=== PATIENT | male | born 1990 | race Caucasian/White ===

== ENCOUNTER 2020-07-22 17:32 | Emergency (ER) | payer BC ==
[2020-07-22] MEDS ORDERED: Famotidine 20 MG/2 ML SDV IVPUSH ONE (17:38)
[2020-07-22] MEDS ORDERED: Dexamethasone 10 MG/ML SDV IVPUSH ONE (17:38)
[2020-07-22] MEDS ORDERED: Sodium Chloride 0.9% 2.5 ML Syringe FLUSH PRN (17:38)
[2020-07-22] MEDS ORDERED: Sodium Chloride 0.9% 10 ML Syringe FLUSH PRN (17:38)
[2020-07-22] MEDS ORDERED: Sodium Chloride 0.9% 1,000 ML IV ONE (17:38)
[2020-07-22] MEDS ORDERED: diphenhydrAMINE 50 MG/ML SDV IVPUSH ONE (17:38)
[2020-07-22] MEDS ORDERED: Albuterol/Ipratropium 3.0-0.5 MG/3 ML Neb Soln NEB ONE (17:39)
--- NOTE | 2020-07-22 17:44 | EDM.PDOC ---
<Baljit Sheldon - Last Filed: 07/22/20 18:16> ED HPI GENERAL MEDICAL PROBLEM - General Chief Complaint: Allergic Reaction Stated Complaint: ALLERGIC REACTION Time Seen by Provider: 07/22/20 17:34 Source of Information: Reports: Patient History Limitations: Reports: No Limitations - History of Present Illness INITIAL COMMENTS - FREE TEXT/NARRATIVE: 30-year-old male no past medical history presents for apparent allergic reaction. 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 He was eating a "Pateros treat" and did not know the ingredients. This occurred around 4 PM. Shortly after eating he noted a scratchy throat and felt as if he was getting an allergic reaction. He noted facial flushing, nausea, mild shortness of breath. He tried to vomit but was unable to. He did not have an EpiPen so did not administer any medications prior to arrival. He denies difficulty swallowing, and can tolerate his secretions. Generalized Pain Score (Numeric/FACES): 3 - Related Data Allergies Allergy/AdvReac Type Severity Reaction Status Date / Time No Known Allergies Allergy Verified 07/22/20 17:40 Home Meds: Home Meds EPINEPHrine [Epipen 2-Delvis] 0.3 mg IJ ONETIME PRN #1 auto.injct 07/22/20 [Rx] predniSONE [Prednisone] 50 mg PO DAILY #3 tablet 07/22/20 [Rx] ED ROS ALLERGIC REACTION - Review of Systems Review Of Systems: Comprehensive ROS is negative, except as noted in HPI. ED EXAM GENERAL NO PERIP PULSE - Physical Exam Exam: See Below Exam Limited By: No Limitations General Appearance: Alert, WD/WN, No Apparent Distress Ears: Normal External Exam Nose: Normal Inspection Throat/Mouth: Normal Inspection, Normal Lips, Normal Oropharynx, Normal Voice, No Airway Compromise Head: Atraumatic, Normocephalic Neck: Normal Inspection, Other (+stridor on neck auscultation) Respiratory/Chest: No Respiratory Distress, No Accessory Muscle Use, Wheezing Cardiovascular: Normal Peripheral Pulses, Regular Rate, Rhythm Extremities: Normal Inspection Neurological: Alert Psychiatric: Normal Affect, Normal Mood Skin Exam: Warm, Dry, Other (facial flushing) Course - Re-Assessments/Exams Free Text/Narrative Re-Assessment/Exam: 07/22/20 17:48 Patient's history and physical is consistent with anaphylactic allergic reaction. Will give IM epinephrine, IV fluid bolus, Benadryl, Pepcid, Decadron. 07/22/20 18:13 Patient is feeling much better; facial flushing is improving, his SOB has resolved. Will continue observation. Will sign out to night team physician to follow-up reassessment after 4-hrs observation period. Epi-pen sent to patient's pharmacy. Departure - Departure Disposition: Home, Self-Care 01 Clinical Impression: Allergic reaction - Discharge Information Prescriptions: EPINEPHrine [Epipen 2-Delvis] 0.3 mg IJ ONETIME PRN #1 auto.injct PRN Reason: Other predniSONE [Prednisone] 50 mg PO DAILY #3 tablet Instructions: How to Use an Auto-Injector Pen, Anaphylactic Reaction, Adult, Allergies, Adult, [id number] Referrals: PCP,None [Primary Care Provider] - Forms: ED Department Discharge Additional Instructions: The need for follow-up, as well as the timing and circumstances, are variable depending upon the specifics of your emergency department visit. If you don't have a primary care physician on staff, we will provide you with a referral. We always advise you to contact your personal physician following an emergency department visit to inform them of the circumstance of the visit and for follow-up with them and/or the need for any referrals to a consulting specialist. The emergency department will also refer you to a specialist when appropriate. This referral assures that you have the opportunity for follow-up care with a specialist. All of these measure are taken in an effort to provide you with optimal care, which includes your follow-up. Under all circumstances we always encourage you to contact your private physician who remains a resource for coordinating your care. When calling for follow-up care, please make the office aware that this follow-up is from your recent emergency room visit. If for any reason you are refused follow-up, please contact the [facility] Emergency Department at and asked to speak to the emergency department charge nurse. If you do not have a primary care doctor, please follow up with the clinics below within 3-5 days. [facility] - Primary [facility] [address] [place] [id number] [facility] [address] [place] [id number] Sepsis Event Note (ED) - Evaluation Sepsis Screening Result: No Definite Risk <Billy Delvalle - Last Filed: 07/22/20 20:09> Course - Vital Signs Last Recorded V/S: Last Vital Signs Temp 98.6 F 07/22/20 18:58 Pulse 62 07/22/20 18:58 Resp 16 07/22/20 18:58 BP 121/75 07/22/20 18:58 Pulse Ox 98 07/22/20 18:58 - Orders/Labs/Meds Orders: Active Orders 24 hr Category Date Time Status RT Aerosol Therapy [RC] ASDIRECTED Care 07/22/20 17:40 Active Sodium Chloride 0.9% [Saline Flush] Med 07/22/20 17:38 Active 10 ml FLUSH ASDIRECTED PRN Sodium Chloride 0.9% [Saline Flush] Med 07/22/20 17:38 Active 2.5 ml FLUSH ASDIRECTED PRN Saline Lock Insert [OM.PC] Stat Oth 07/22/20 17:38 Ordered Medication Orders Sodium Chloride (Saline Flush) 10 ml FLUSH ASDIRECTED PRN PRN Reason: Keep Vein Open Last Admin: 07/22/20 17:52 Dose: 10 ml Documented by: SHAWANDA Sodium Chloride (Saline Flush) 2.5 ml FLUSH ASDIRECTED PRN PRN Reason: Keep Vein Open Last Admin: 07/22/20 17:52 Dose: 2.5 ml Documented by: SHAWANDA Labs: Laboratory Tests 07/22/20 07/22/20 Range/Units 17:37 18:03 WBC 4.01 (4.0-11.0) K/uL RBC 4.75 (4.50-5.90) M/uL Hgb 15.2 (13.0-17.0) g/dL Hct 43.2 (38.0-50.0) % MCV 90.9 (80.0-98.0) fL MCH 32.0 (27.0-32.0) pg MCHC 35.2 (31.0-37.0) g/dL RDW Std Deviation 40.9 (28.0-62.0) fl RDW Coeff of Ash 12 (11.0-15.0) % Plt Count 234 (150-400) K/uL MPV 11.10 (7.40-12.00) fL Neut % (Auto) 47.3 L (48.0-80.0) % Lymph % (Auto) 40.1 H (16.0-40.0) % [place] % (Auto) 10.7 (0.0-15.0) % Eos % (Auto) 1.7 (0.0-7.0) % Baso % (Auto) 0.2 (0.0-1.5) % Neut # (Auto) 1.9 (1.4-5.7) K/uL Lymph # (Auto) 1.6 (0.6-2.4) K/uL [place] # (Auto) 0.4 (0.0-0.8) K/uL Eos # (Auto) 0.1 (0.0-0.7) K/uL Baso # (Auto) 0.0 (0.0-0.1) K/uL Nucleated RBC % 0.0 /100WBC Nucleated RBCs # 0 K/uL Sodium 141 (136-148) mmol/L Potassium 3.4 L (3.5-5.1) mmol/L Chloride 102 (98-107) mmol/L Carbon Dioxide 28.6 (21.0-32.0) mmol/L BUN 12 (7.0-18.0) mg/dL Creatinine 0.9 (0.8-1.3) mg/dL Est Cr Clr Drug Dosing 122.20 mL/min Estimated GFR (MDRD) > 60.0 ml/min Glucose 104 (74-106) mg/dL Calcium 9.4 (8.5-10.1) mg/dL Total Bilirubin 0.6 (0.2-1.0) mg/dL AST 27 (15-37) IU/L ALT 28 (14-63) IU/L Alkaline Phosphatase 57 (46-116) U/L Total Protein 8.4 H (6.4-8.2) g/dL Albumin 4.9 (3.4-5.0) g/dL Globulin 3.5 (2.6-4.0) g/dL Albumin/Globulin Ratio 1.4 (0.9-1.6) Meds: Medications Generic Name Dose Route Start Last Admin Trade Name Ann Marie PRN Reason Stop Dose Admin Sodium Chloride 10 ml 07/22/20 17:38 07/22/20 17:52 Saline Flush FLUSH 10 ml ASDIRECTED PRN Administration Keep Vein Open Sodium Chloride 2.5 ml 07/22/20 17:38 07/22/20 17:52 Saline Flush FLUSH 2.5 ml ASDIRECTED PRN Administration Keep Vein Open Discontinued Medications Generic Name Dose Route Start Last Admin Trade Name Freq PRN Reason Stop Dose Admin Albuterol/Ipratropium 3 ml 07/22/20 17:39 07/22/20 17:52 Duoneb 3.0-0.5 Mg/3 Ml NEB 07/22/20 17:40 3 ml ONETIME ONE Administration Dexamethasone 10 mg 07/22/20 17:38 07/22/20 17:51 Decadron IVPUSH 07/22/20 17:39 10 mg ONETIME ONE Administration Diphenhydramine HCl 50 mg 07/22/20 17:38 07/22/20 17:51 Benadryl IVPUSH 07/22/20 17:39 50 mg ONETIME ONE Administration Famotidine 20 mg 07/22/20 17:38 07/22/20 17:51 Pepcid IVPUSH 07/22/20 17:39 20 mg ONETIME ONE Administration Sodium Chloride 1,000 mls @ 999 mls/hr 07/22/20 17:38 07/22/20 17:51 Normal Saline IV 07/22/20 18:38 999 mls/hr .Bolus ONE Administration - Re-Assessments/Exams Free Text/Narrative Re-Assessment/Exam: 07/22/20 22:10 After prolonged observation in the ER, he feels much improved and is currently stable for discharge. I performed a repeat exam and did not appreciate new abnormal findings. Patient exhibits normal vital signs and has a normal gait on road test. Lungs clear to auscultation bilaterally, Mallampati score = 1, no stridor, no hoarseness, no respiratory distress, no nausea or vomiting. I advised the patient to return to the ER for reevaluation if symptoms worsened, including fever, worsening pain, or any other worrisome symptoms. I instructed the patient to follow up with their PCP within 2-3 days. MEDICAL DECISION MAKING: I reviewed the patients past medical records, lab and radiographic findings. I discussed the case with the patient. My differential diagnosis included: Allergic reaction, anaphylaxis. Patient was given epinephrine IM, Benadryl, Decadron, Pepcid, IV fluids with improvement of his symptoms. He was observed prolonged period in the ER with resolvent of symptoms. Departure - Departure Time of Disposition: 22:00 Condition: Good - Discharge Information *PRESCRIPTION DRUG MONITORING PROGRAM REVIEWED*: Not Applicable *COPY OF PRESCRIPTION DRUG MONITORING REPORT IN PATIENT BHASKAR: Not Applicable Critical Care Note - Critical Care Note Total Time (mins): 45 Comments: CRITCAL CARE: The high probability of sudden, clinically significant deterioration in the patient's condition required the highest level of my preparedness to intervene urgently. The services I provided to this patient were to treat and/or prevent clinically significant deterioration. Services included the following: chart data review, reviewing nursing notes and/or old charts, documentation time, investigations consultant collaboration regarding findings and treatment options, medication orders and management, direct patient care, vital sign assessments and ordering, interpreting and reviewing diagnostic studies/lab tests. Aggregate critical care time includes only time during which I was engaged in work directly related to the patient's care, as described above, whether at the bedside or elsewhere in the Emergency Department. It did not include time spent performing other reported procedures or the services of residents, students, nurses or physician assistants. Frequent interventions and/or frequent repeat evaluations were required as well as counseling and coordination of care regarding prognosis, treatments, and discussions with patient, staff and consultants. Critical Care (excluding other procedures): 45 minutes Sepsis Event Note (ED) - Focused Exam Vital Signs: Vital Signs Temp Pulse Resp BP Pulse Ox 07/22/20 18:58 98.6 F 62 16 121/75 98 07/22/20 18:40 98.6 F 59 L 16 127/71 98 07/22/20 18:04 98.6 F 73 16 129/86 97 07/22/20 17:40 98.3 F 90 18 130/95 H 97
[2020-07-22 18:04] LABS: BLOOD UREA NITROGEN,BUN 12 mg/dL (7.0-18.0); CARBON DIOXIDE,CO2 28.6 mmol/L (21.0-32.0); CHLORIDE,CL 102 mmol/L (98-107); GLUCOSE RANDOM 104 mg/dL (74-106); POTASSIUM,K 3.4 mmol/L (3.5-5.1); SODIUM,NA 141 mmol/L (136-148)
== END 2020-07-22 20:41 | disposition left against medical advice (07) ==
LOC: MW.ED 17:32
DX: T78.1XXA Other adverse food reactions, not elsewhere classified, initial encounter (principal)
CPT/HCPCS: 36415; 80053; 85025; 94640; 96374; 96375; 99285; J1100; J1200; J3490; J7030; 99291; J7620-GY